=== PATIENT | male | born 1995 | race Asian ===

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

== ENCOUNTER 2018-04-26 17:32 | Emergency (ER) | payer OTHER ==
[2018-04-26] MEDS ORDERED: Tetracaine 0.5% OPTH.SOL 4 ML* 1 DROP BTL ONE (18:05)
[2018-04-26] MEDS ORDERED: Fluorescein Sodium TOPICAL* 1 MG TEST STRIP OPHTHALMIC ONE (18:05)
--- NOTE | 2018-04-26 18:46 | ED ---
Throat Pain/Nasal Congestion - HPI Summary HPI Summary: 22-year-old male presents from [place] for right eye pain since last night. He states he wears contacts for too long last night. He states that it feels like his eyes are irritated and they have been tearing. Denies any foreign body in the eye. Denies any change in vision. No blurry vision. States never happened before. He has taken his contacts out and is not wearing them currently. he denies any fever. no other symptoms. - History of Current Complaint Chief Complaint: EDEyeProblem Time Seen by Provider: 04/26/18 17:51 - Allergies/Home Medications Allergies/Adverse Reactions: Allergies Allergy/AdvReac Type Severity Reaction Status Date / Time No Known Allergies Allergy Verified 04/26/18 17:38 PMH/Surg Hx/FS Hx/Imm Hx Endocrine/Hematology History: Denies: Hx Anticoagulant Therapy Respiratory History: Denies: Hx Asthma Sensory History: Reports: Hx Contacts or Glasses Infectious Disease History: No Infectious Disease History: Denies: Traveled Outside the [place] in Last 30 Days - Family History Known Family History: Positive: Non-Contributory - Social History Alcohol Use: Occasionally Substance Use Type: Reports: None Hx Tobacco Use: No Smoking Status (MU): Never Smoked Tobacco Review of Systems Negative: Fever Positive: Drainage, Erythema. Negative: Blurred Vision, Diplopia Negative: Chest Pain Negative: Shortness Of Breath All Other Systems Reviewed And Are Negative: Yes Physical Exam Triage Information Reviewed: Yes Vital Signs On Initial Exam: Initial Vitals Temp Pulse Resp BP Pulse Ox 97.8 F 71 14 153/92 100 04/26/18 17:33 04/26/18 17:33 04/26/18 17:33 04/26/18 17:33 04/26/18 17:33 Vital Signs Reviewed: Yes Appearance: Positive: Well-Appearing Skin: Positive: Warm, Dry Head/Face: Positive: Normal Head/Face Inspection Eyes: Positive: EOMI, JESSICA, Conjunctiva Inflammed, Other: - 1mm white spot at 11 position of cornea that uptakes on fluorscein exam Respiratory/Lung Sounds: Positive: Clear to Auscultation, Breath Sounds Present Cardiovascular: Positive: Normal, RRR Musculoskeletal: Positive: Normal Neurological: Positive: Normal Psychiatric: Positive: Normal Procedures - Eye Procedure right Alcaine Drops Administered: Yes Diagnostics - Vital Signs Vital Signs Temp Pulse Resp BP Pulse Ox 04/26/18 17:33 97.8 F 71 14 153/92 100 - Laboratory Lab Statement: Any lab studies that have been ordered have been reviewed, and results considered in the medical decision making process. EENT Course/Dx - Course Course Of Treatment: 22 year old male presents with right eye irritation today. he states he wore his contacts for longer than he normal does. on physical has 1mm white round spot at 11 position that uptakes on fluorscein exam, injected conjunctivia, photophobia, swelling eyelids. discussed with dr poon said to place on tobramycin every 2 hours, and follow up tomorrow. patient states not sure if insurance covers this doctor. told to call insurance tonight to ask and if not needs follow up tomorrow no matter what. patient understand and agrees with plan. - Differential Diagnoses Differential Diagnoses: Corneal Abrasion, Keratitis, Other - ulcer - Diagnoses Provider Diagnoses: Corneal ulcer Discharge - Sign-Out/Discharge Documenting (check all that apply): Patient Departure Patient Received Moderate/Deep Sedation with Procedure: No - Discharge Plan Condition: Good Disposition: HOME Patient Education Materials: Corneal Ulcer (ED) Referrals: Ricardo Poon MD [Medical Doctor] - Additional Instructions: apply 1 drop every 2 hours while awake do not wear contacts you need to follow up with optho, call office at 8am for appointment Return to ED if develop any new or worsening symptoms - Billing Disposition and Condition Condition: GOOD Disposition: Home
[2018-04-26] MEDS ORDERED: Tobramycin 0.3% OPHTH.SOL* 5 ML BOT (regular eye drops) RIGHT EYE ONE (19:02)
[2018-04-26 19:26] VITALS: BP 118/63
== END 2018-04-26 19:25 | disposition home or self-care (01) ==
LOC: ED 17:32
DX: H16.001 Unspecified corneal ulcer, right eye (principal)
CPT/HCPCS: 99282; A9270-GY